=== PATIENT | female | born 1940 | race Caucasian/White ===

== ENCOUNTER → 2020-12-21 11:03 | Outpatient (BNVA) | payer MEDICARE, BC, SELFPAY | PROVIDERS: Visit Provider Nurse Practitioner | DX: I69.398 Other sequelae of cerebral infarction (principal); R26.89 Other abnormalities of gait and mobility; H53.8 Other visual disturbances; R56.9 Unspecified convulsions; Z87.891 Personal history of nicotine dependence | CPT/HCPCS: 99205 ==

== ENCOUNTER 2021-01-03 15:24 | Outpatient (CLI) | payer MEDICARE, BC, SELFPAY ==
--- NOTE | 2021-01-03 16:00 | MR_ITS ---
WS: [id number] MRI HEAD WITHOUT CONTRAST TECHNIQUE: Sagittal T1, T2 axial, T2 axial FLAIR, axial and coronal T1 images, axial susceptibility w eighted imaging, axial diffusion weighted images, and coronal T2 images were obtained. CLINICAL INFORMATION: I63.9 - Cerebral infarction, unspecified COMPARISON: CTA June 23, 2020 and MRI March 27, 2020 FINDINGS: New area of restricted diffusion in the right posterior temporal lobe consistent with acute ischemia measuring 4.1 x 2.1 cm with associated edema. Mild effacement of the overlying sulci. Additional area of restricted diffusion adjacent to the right atrium measuring 2.3 x 1.8 cm. A few additional patchy serpiginous areas of partially restricted diffusion within the right parietal lobe posteriorly consi stent with additional small areas of acute to subacute ischemia. Small amount of serpiginous cortical T1 hyperintensity in these areas consistent with laminar necrosis. No evidence of acute ischemia in the left cerebral hemisphere. Moderate to advanced small vessel changes with moderate parenchymal volume loss. Small vessel changes in the rodolfo. Normal posterior fossa. Normal vascular flow voids at the skull base. No extra-axial fl uid collections. Mild mucosal thickening paranasal sinuses. Mastoid air cells are well aerated. Lien l optic chiasm and pituitary infundibulum. Moderate to advanced symmetric atrophy temporal lobes and hippocampal formations. Chronic lacunar infarct left thalamus. Areas of chronic encephalomalacia abou t the posterior temporal and occipital horns left greater than right from prior infarcts. MR/MR head wo con* [id number] IMPRESSION: 1. Patchy areas of restricted diffusion in the right posterior temporal lobe e xtending into the right occipital lobe and right parasagittal parietal lobe con sistent with acute to early subacute ischemia. This appears new from the prior examination. Largest area of ischemia measures 4.1 x 2.1 cm. 2. Mild edema within the right posterior temporal lobe with slight effacement of the overlying sulci. Associated areas of cortical laminar necrosis. 3. No significant mass effect or midline shift. No hydrocephalus. 4. Moderate to advanced small vessel changes with moderate parenchymal volume loss. Small vessel changes in the rodolfo. 5. Moderate to advanced symmetric atrophy involving the temporal lobes and hip pocampal formations. 6. Chronic lacunar infarct involving the left thalamus. Message left for Dr. Pulido at 01/03/2021 5:18 PM.
== END 2021-01-03 15:25 | disposition home or self-care (01) ==
LOC: RADSHAW 15:33
PROVIDERS: PCP Family Medicine; Visit Provider Nurse Practitioner
DX: I63.9 Cerebral infarction, unspecified (principal); I63.81 Other cerebral infarction due to occlusion or stenosis of small artery; G31.9 Degenerative disease of nervous system, unspecified; R60.0 Localized edema
CPT/HCPCS: 70551

== ENCOUNTER → 2021-01-17 13:23 | Outpatient (BNVA) | payer MEDICARE, BC, SELFPAY | PROVIDERS: PCP Family Medicine; Visit Provider Nurse Practitioner | DX: Z86.73 Personal history of transient ischemic attack (TIA), and cerebral infarction without residual deficits (principal); R79.82 Elevated C-reactive protein (CRP); M25.50 Pain in unspecified joint | CPT/HCPCS: 99213; 99214 ==

== ENCOUNTER → 2021-02-20 14:40 | Outpatient (BNVA) | payer MEDICARE, BC, SELFPAY | PROVIDERS: PCP Family Medicine; Referring Provider Nurse Practitioner; Visit Provider Specialist | DX: R56.9 Unspecified convulsions (principal) | CPT/HCPCS: 95816 ==